=== PATIENT | male | born 1970 | race Caucasian/White ===

== ENCOUNTER 2017-03-11 13:21 | Emergency (ER) | payer MEDICAID ==
[~2017-03-11] VITALS: Ht 170.2 cm; Wt 109.2 kg
[2017-03-11 13:29] VITALS: Ht 170.2 cm; Wt 109.2 kg
[2017-03-11] MEDS ORDERED: HYDROCODONE/APAP (5/325) TAB PO ONE (14:30)
[2017-03-11] MEDS ORDERED: CLINDAMYCIN 300 MG INJ IM ONE (14:30)
[2017-03-11] MEDS ORDERED: LIDOCAINE 1% (MDV) 20 ML INJ SC ONE (14:30)
--- NOTE | 2017-03-11 14:31 | ERD ---
ER Documentation Chief Complaint Chief Complaint right elbow abscess x 2 days HPI This 47-year-old male who presents to the emergency department today complaining of right elbow pain and redness and swelling that started yesterday. States he took Tylenol for the pain. States that he thought he had a pimple inside that he squeezed. Denies any fevers or chills. Denies any trauma. ROS All systems reviewed and are negative except as per history of present illness. Medications Home Meds Active Scripts Naproxen* (Naprosyn*) 500 Mg Tablet, 500 MG PO BID Y for PAIN AND/OR INFLAMMATION, #30 TAB Prov:TERESA HU PA-C 03/11/17 Cephalexin* (Keflex*) 500 Mg Capsule, 500 MG PO QID for 7 Days, CAP Prov:TERESA HU PA-C 03/11/17 Sulfamethoxazole/Trimethoprim* (Bactrim Ds* Tablet) 1 Each Tablet, 1 TAB PO BID for 7 Days, #14 TAB Prov:TERESA HU PA-C 03/11/17 Allergies Allergies: Coded Allergies: No Known Allergy (Unverified , 03/11/17) Physical Exam Vitals Vital Signs Date Time Temp Pulse Resp B/P Pulse Ox O2 Delivery O2 Flow Rate FiO2 03/11/17 13:29 98.5 80 18 161/95 98 Physical Exam Const: NAD Head: Atraumatic Eyes: Normal Conjunctiva ENT: Normal External Ears, Nose and Mouth. Neck: Full range of motion..~ No meningismus. Resp: Clear to auscultation bilaterally Cardio: Regular rate and rhythm, no murmurs Abd: Soft, non tender, non distended. Normal bowel sounds Skin: No petechiae or rashes MSk: Right elbow with colitis erythema and swelling. Decreased range of motion secondary to pain. Pulses 2+. Distal neurovascularly intact. Neur: Awake and alert Psych: Normal Mood and Affect Results 24 hrs Current Medications Medications (Trade) Dose Ordered Sig/Arnol Route PRN Reason Start Time Stop Time Status Last Admin Dose Admin Acetaminophen/ Hydrocodone Bitart (Lovejoy (5/325)) 1 tab ONCE ONCE PO 03/11/17 14:30 03/11/17 14:31 DC 03/11/17 14:37 Clindamycin Phosphate (Cleocin) 600 mg ONCE ONCE IM 03/11/17 14:30 03/11/17 14:31 DC Lidocaine (Xylocaine 1% (Mdv) 20 ml) 20 ml ONCE ONCE SC 03/11/17 14:30 03/11/17 14:31 DC Clindamycin Phosphate (Cleocin) 600 mg ONCE ONCE IM 03/11/17 15:00 03/11/17 15:01 Procedures/MDM This 47-year-old male presents the emergency department today complaining of right elbow pain and swelling and redness that started yesterday. Patient is afebrile and otherwise well-appearing however on physical exam he has localized swelling and erythema on his right elbow. There is evidence of a small cut that upon further questioning patient indicated that he hit it on his car approximately 1 week ago. Has a very small area of fluctuance in his elbow and he did attempt to aspirate some fluid with an 18-gauge needle and lidocaine. Area was cleaned in the usual sterile fashion. I removed approximately 1 cc of fluid. Patient tolerated procedure well there were no complications. Patient was given an Walter wrap for compression. Symptoms at this time is consistent with bursitis of the elbow and localized cellulitis vs infected bursa. low suspicion for septic joint or gout. Do not feel the patient requires imaging or laboratory workup at this time. Low suspicion for sepsis, deep space tracking infection, osteomyelitis. Patient was also given clindamycin IM here in the emergency department as well as Lovejoy. He was given a prescription for Naprosyn, Tylenol, Bactrim and Keflex for home and instructed to return in 48 hours for a wound recheck. At this time the patient is stable for discharge and outpatient management. Patient should follow up with their PCP in the next 1-2 days. They may return to the emergency department sooner for any persistent or worsening of symptoms. Patient understood and agreed with the plan. Dr. Silva has seen and evaluated the patient he is in agreement with the plan. Departure Diagnosis: Primary Impression: Bursitis of elbow Elbow bursitis location: olecranon bursitis Laterality: right Qualified Code: M70.21 - Olecranon bursitis of right elbow Additional Impression: Cellulitis Site of cellulitis: extremity Site of cellulitis of extremity: upper extremity Laterality: right Qualified Code: L03.113 - Cellulitis of right upper extremity Condition: TERESA Verma PA-C Mar 11, 2017 14:31
[2017-03-11] MEDS ORDERED: NAPR-260 PO (14:56)
[2017-03-11] MEDS ORDERED: CEPH-443 PO (14:56)
[2017-03-11] MEDS ORDERED: SULF1TAB31 PO (14:56)
[2017-03-11] MEDS ORDERED: CLINDAMYCIN 900 MG INJ IM ONE (15:00)
== END 2017-03-11 15:15 | disposition home or self-care (01) ==
LOC: FTE 13:21
DX: M70.21 Olecranon bursitis, right elbow (principal); L03.113 Cellulitis of right upper limb; Y93.9 Activity, unspecified
CPT/HCPCS: 20605; 96372; S0077; Z7502; Z7610

== ENCOUNTER 2017-03-13 16:09 | Emergency (ER) | payer MEDICAID ==
[~2017-03-13] VITALS: Ht 170.2 cm; Wt 109.0 kg
[~2017-03-13 16:09] MED LIST: CEPH-443 PO; NAPR-260 PO; SULF1TAB31 PO
[2017-03-13 16:14] VITALS: Ht 170.2 cm; Wt 109.0 kg
[2017-03-13 18:00] VITALS: BP 143/94; PULSE 70; RESP 18; TEMP 98.1
--- NOTE | 2017-03-13 18:09 | ERD ---
ER Documentation Chief Complaint Chief Complaint for recheck on rt elbow cellulitis HPI This 47-year-old male is here for recheck on right elbow olecranon bursitis and cellulitis. He is on clindamycin applying warm compresses. He denies any fevers. He says there is persistent redness but no increasing pain or swelling. ROS All systems reviewed and are negative except as per history of present illness. Medications Home Meds Active Scripts Naproxen* (Naprosyn*) 500 Mg Tablet, 500 MG PO BID Y for PAIN AND/OR INFLAMMATION, #30 TAB Prov:TERESA HU PA-C 03/11/17 Cephalexin* (Keflex*) 500 Mg Capsule, 500 MG PO QID for 7 Days, CAP Prov:TERESA HU PA-C 03/11/17 Sulfamethoxazole/Trimethoprim* (Bactrim Ds* Tablet) 1 Each Tablet, 1 TAB PO BID for 7 Days, #14 TAB Prov:TERESA HU PA-C 03/11/17 Allergies Allergies: Coded Allergies: No Known Allergy (Unverified , 03/11/17) PMhx/Soc Medical and Surgical Hx: pt denies Medical Hx, pt denies Surgical Hx Hx Alcohol Use: No Hx Substance Use: No Hx Tobacco Use: No Smoking Status: Never smoker Physical Exam Vitals Vital Signs Date Time Temp Pulse Resp B/P Pulse Ox O2 Delivery O2 Flow Rate FiO2 03/13/17 16:14 98.1 98 18 143/94 96 Physical Exam Const: [] Alert, [id number]. Head: Atraumatic Eyes: Normal Conjunctiva ENT: Normal External Ears, Nose and Mouth. Neck: Full range of motion..~ No meningismus. Resp: Clear to auscultation bilaterally Cardio: Regular rate and rhythm, no murmurs Abd: Soft, non tender, non distended. Normal bowel sounds Skin: No petechiae or rashes Back: No midline or flank tenderness Ext: No cyanosis, or edema. There is some redness of the right elbow area with some minimal swelling of the olecranon bursa. It is similar to previous visit. There is no effusion appreciated no appreciable neurologic or tendon deficits or signs of ischemia. Neur: Awake and alert Psych: Normal Mood and Affect Results 24 hrs Current Medications Medications (Trade) Dose Ordered Sig/Arnol Route PRN Reason Start Time Stop Time Status Last Admin Dose Admin Ceftriaxone Sodium (Rocephin) 1 gm ONCE ONCE IM 03/13/17 18:30 03/13/17 18:31 Lidocaine (Xylocaine 1% (Mdv) 20 ml) 20 ml ONCE ONCE SC 03/13/17 18:30 03/13/17 18:31 Procedures/MDM Patient presents for recheck on right olecranon bursitis or cellulitis. Looks more or less the same as 2 days ago. I am recommending continuation of antibiotics and warm compresses will give Rocephin 1 g as needed instructions to continue current treatment and recheck again in 2-3 days, sooner for worsening redness, fevers, new worsening symptoms. Doubt necrotizing fasciitis , septic arthritis, sepsis. Departure Diagnosis: Primary Impression: Cellulitis Site of cellulitis: extremity Site of cellulitis of extremity: upper extremity Laterality: right Qualified Code: L03.113 - Cellulitis of right upper extremity Additional Impression: Olecranon bursitis Laterality: right Qualified Code: M70.21 - Olecranon bursitis of right elbow Condition: Stable Patient Instructions: Cellulitis, Bursitis, Elbow (Olecranon) Additional Instructions: Continue current medication. Recheck in 2-3 days, sooner for worsening redness , fevers, new symptoms. LEVI OLIVA MD Mar 13, 2017 18:09
[2017-03-13] MEDS ORDERED: LIDOCAINE 1% (MDV) 20 ML INJ SC ONE (18:30)
[2017-03-13] MEDS ORDERED: CEFTRIAXONE 1 GM INJ IM ONE (18:30)
== END 2017-03-13 18:34 | disposition home or self-care (01) ==
LOC: FTE 16:09
DX: L03.113 Cellulitis of right upper limb (principal); Y93.9 Activity, unspecified
CPT/HCPCS: 96372; J0696; Z7502; Z7610

== ENCOUNTER 2017-03-16 14:57 | Emergency (ER) | payer BC, MEDICAID ==
[~2017-03-16] VITALS: Ht 177.8 cm; Wt 109.6 kg
[2017-03-16 15:39] VITALS: Ht 177.8 cm; Wt 109.6 kg
--- NOTE | 2017-03-16 17:22 | ERD ---
ER Documentation Chief Complaint Chief Complaint Told to return for recheck HPI This 47-year-old male presents for recheck on right olecranon bursitis. He is taking clindamycin. Denies any fevers, worsening redness. Is requesting a tetanus shot as well. ROS All systems reviewed and are negative except as per history of present illness. PMhx/Soc Medical and Surgical Hx: pt denies Medical Hx History of Surgery: No Anesthesia Reaction: No Hx Neurological Disorder: No Hx Respiratory Disorders: No Hx Cardiac Disorders: No Hx Psychiatric Problems: No Hx Miscellaneous Medical Probl: No Hx Alcohol Use: No Hx Substance Use: No Hx Tobacco Use: No Smoking Status: Never smoker Physical Exam Vitals Vital Signs Date Time Temp Pulse Resp B/P Pulse Ox O2 Delivery O2 Flow Rate FiO2 03/16/17 15:39 98.5 102 20 175/83 99 Physical Exam Const: [] Head: Atraumatic Eyes: Normal Conjunctiva ENT: Normal External Ears, Nose and Mouth. Neck: Full range of motion..~ No meningismus. Resp: Clear to auscultation bilaterally Cardio: Regular rate and rhythm, no murmurs Abd: Soft, non tender, non distended. Normal bowel sounds Skin: No petechiae or rashes. There is some warmth and redness around the right olecranon associated with mild swelling without appreciable fluctuance. Erythema significantly improved since last visit seen by me. Is no effusion, restricted range of motion weakness. Back: No midline or flank tenderness Ext: No cyanosis, or edema Neur: Awake and alert Psych: Normal Mood and Affect Results 24 hrs Current Medications Medications (Trade) Dose Ordered Sig/Arnol Route PRN Reason Start Time Stop Time Status Last Admin Dose Admin Ceftriaxone Sodium (Rocephin) 1 gm ONCE ONCE IM 03/16/17 17:30 03/16/17 17:31 Lidocaine (Xylocaine 1% (Mdv) 20 ml) 20 ml ONCE ONCE SC 03/16/17 17:30 03/16/17 17:31 Diphtheria/ Tetanus/Acell Pertussis (Adacel) 0.5 ml ONCE ONCE IM* 03/16/17 17:30 12 17:31 Procedures/MDM Patient presents for recheck on right olecranon bursitis which is improving but not completely resolved. Patient will be given additional Rocephin 1 g IM, instructions continue clindamycin warm compresses and rechecking for worsening redness, fevers, new worsening symptoms. Patient was given a tetanus booster as well. Current signs or symptoms do not suggest osteo-myelitis, septic arthritis, ischemia, deficits. Departure Diagnosis: Primary Impression: Olecranon bursitis of right elbow Condition: Stable Patient Instructions: Bursitis, Elbow (Olecranon) Additional Instructions: Continue antibiotics and warm compresses. Recheck for worsening redness, fevers , new or worsening symptoms. LEVI OLIVA MD Mar 16, 2017 17:22
[2017-03-16] MEDS ORDERED: DIPHTH/TET/ACEL PERTUSS (ADULT) 0.5 ML VIAL IM* ONE (17:30)
[2017-03-16] MEDS ORDERED: CEFTRIAXONE 1 GM INJ IM ONE (17:30)
[2017-03-16] MEDS ORDERED: LIDOCAINE 1% (MDV) 20 ML INJ SC ONE (17:30)
== END 2017-03-16 17:54 | disposition home or self-care (01) ==
LOC: FTE 14:57 → MERGE 14:57 → FTE 17:54
DX: M70.21 Olecranon bursitis, right elbow (principal); Y93.9 Activity, unspecified; Z23 Encounter for immunization
CPT/HCPCS: 90471; 90715; 96372; J0696; Z7502; Z7610

== ENCOUNTER 2017-04-13 15:10 | Emergency (ER) | END 2017-04-13 21:14 | disposition home or self-care (01) ==

== ENCOUNTER 2018-01-17 11:17 | Emergency (ER) | END 2018-01-17 14:24 | disposition home or self-care (01) ==

== ENCOUNTER 2018-08-18 14:37 | Emergency (ER) | payer MEDICAID ==
[~2018-08-18] VITALS: Ht 177.8 cm; Wt 95.0 kg
[~2018-08-18 14:37] MED LIST changes: +HC30CR25 TOP; +HYDR-4011 PO; +MINE3.5O30 LEFT EYE; -NAPR-260 PO; +NAPR-985 PO
[2018-08-18 14:41] VITALS: PULSE 99; Ht 177.8 cm; Wt 95.0 kg
[2018-08-18] MEDS ORDERED: LOSA1TAB9 PO (15:21)
--- NOTE | 2018-08-18 15:28 | ERD ---
ER Documentation Chief Complaint Chief Complaint PT CAME FOR REFILL HTN MEDICATION; HX OF HTN, NO MORE MEDS HPI Patient is a 48-year-old male with past medical history ER for concerns of a refill for his high blood pressure medication. Patient states he is not taking his high blood pressure medication for 2 months. Patient states he takes Hyzaar 100 mg. Patient denies any chest pain, shortness breath, headache, nausea, vomiting, blurry vision or LOC. Patient states he is only here for medication refill. ROS All systems reviewed and are negative except as per history of present illness. Medications Home Meds Active Scripts Losartan/Hydrochlorothiazide (Hyzaar 100-12.5 Tablet) 1 Each Tablet, 1 EACH PO DAILY, #30 TAB Prov:JUANCHO GRESHAM PA-C 08/18/18 Hydrocortisone* Topical (Hydrocortisone* Topical) 2.5%-28.3 Gm Cream..g., 1 APPLIC TOP BID for 5 Days, #1 TUB Prov:JOESPH GROSS MD 01/17/18 Hydrocodone/Acetaminophen ([place] 5-325 Tablet) 1 Each Tablet, 1 TAB PO Q8 PRN for PAIN, #10 TAB Prov:JOESPH GROSS MD 01/17/18 Mineral Oil/Petrolatum,White (ARTIFICIAL TEARS EYE OINT) 3.5 Gm Oint...g., 1 APPLIC LEFT EYE NEEDED PRN for DRY EYES, #1 EA Prov:FERN HONG PA-C 04/13/17 Naproxen* (Naprosyn*) 500 Mg Tablet, 500 MG PO BID PRN for PAIN AND/OR INFLAMMATION, #30 TAB Prov:TERESA HU PA-C 03/11/17 Cephalexin* (Keflex*) 500 Mg Capsule, 500 MG PO QID for 7 Days, CAP Prov:TERESA HU PA-C 03/11/17 Sulfamethoxazole/Trimethoprim* (Bactrim Ds* Tablet) 1 Each Tablet, 1 TAB PO BID for 7 Days, #14 TAB Prov:TERESA HU PA-C 03/11/17 Allergies Allergies: Coded Allergies: No Known Allergy (Unverified , 03/11/17) PMhx/Soc History of Surgery: Yes (Ankle) Anesthesia Reaction: No Hx Neurological Disorder: No Hx Respiratory Disorders: No Hx Cardiac Disorders: Yes (HTN, High Cholesterol) Hx Psychiatric Problems: No Hx Miscellaneous Medical Probl: No Hx Alcohol Use: No Hx Substance Use: No Hx Tobacco Use: No FmHx Family History: No diabetes Physical Exam Vitals Vital Signs Date Temp Pulse Resp B/P (MAP) Pulse Ox O2 O2 Flow FiO2 Time Delivery Rate 08/18/18 97.9 99 18 170/104 95 14:41 (126) Physical Exam GENERAL: Well-developed, well-nourished male. Appears in no acute distress. Speaking in full sentences. HEAD: Normocephalic, atraumatic. EYES: Pupils are equally reactive bilaterally. EOMs grossly intact. No conjunctival erythema. ENT: Moist mucous membranes. No uvula deviation. No kissing tonsils. NECK: Supple. No meningismus. Normal range of motion of the neck. LUNG: Clear to auscultation bilaterally. No rhonchi, wheezing, rales or coarse breath sounds. HEART: Regular rate and rhythm. No murmurs, rubs or gallops. Equal pulses in bilateral upper extremities. EXTREMITIES: Equal pulses bilaterally. No peripheral clubbing, cyanosis or edema. No unilateral leg swelling. NEUROLOGIC: Alert and oriented. Moving all four extremities without any difficulty. Normal speech. Steady gait. SKIN: Normal color. Warm and dry. No rashes or lesions. Procedures/MDM MEDICAL DECISION MAKING: Patient is a 48-year-old male presents ER for concerns of needing a refill of his high blood pressure medications. Patient denies any associated chest pain, shortness of breath, headache, blurry vision, nausea, vomiting or LOC. Vital signs were reviewed. Patient is afebrile. Patient was not hypoxic. Patient was hemodynamically stable. Refill of the patient's Hyzaar was provided. Patient advised to follow-up with a primary care physician for further management of his elevated blood pressures. Low suspicion for hypertensive emergency or hypertensive urgency at this time. DISCHARGE: At this time, patient is stable for discharge and outpatient management. I have instructed the patient to follow-up with his/her primary care physician in 1-2 days. I have discussed with the patient the possibility of needing to see a specialist for further workup and imaging studies if symptoms persist. I have instructed the patient to promptly return to the ER for any new or worsening symptoms including increased pain, fever, nausea, vomiting, weakness or LOC. The patient and/or family expressed understanding of and agreement with this plan. All questions were answered. Home care instructions were provided. Patients blood pressure was elevated (>120/80) but appears stable without evidence of hypertensive emergency, hypertensive urgency or end-organ failure. I had discussion with the patient about the risks of hypertension. I have advised the patient to follow up with his/her primary care physician for outpatient monitoring and treatment for hypertension in 2-3 days. I have instructed the patient to return to the ER for any new or worsening symptoms including chest pain, shortness of breath, headache, blurred vision, confusion, nausea, vomiting or LOC. Disclaimer: Inadvertent spelling and grammatical errors are likely due to EHR/dictation software use and do not reflect on the overall quality of patient care. Also, please note that the electronic time recorded on this note does not necessarily reflect the actual time of the patient encounter. Departure Diagnosis: Primary Impression: Medication refill Additional Impression: Hypertension Hypertension type: unspecified Qualified Codes: I10 - Essential (primary) hypertension Patient Instructions: Hypertension, Established, Out Of Control Referrals: [facility] YOU HAVE RECEIVED A MEDICAL SCREENING EXAM AND THE RESULTS INDICATE THAT YOU DO NOT HAVE A CONDITION THAT REQUIRES URGENT TREATMENT IN THE EMERGENCY DEPARTMENT. FURTHER EVALUATION AND TREATMENT OF YOUR CONDITION CAN WAIT UNTIL YOU ARE SEEN IN YOUR DOCTORS OFFICE WITHIN THE NEXT 1-2 DAYS. IT IS YOUR RESPONSIBILITY TO MAKE AN APPOINTMENT FOR FOLOW-UP CARE. IF YOU HAVE A PRIMARY DOCTOR --you should call your primary doctor and schedule an appointment IF YOU DO NOT HAVE A PRIMARY DOCTOR YOU CAN CALL OUR PHYSICIAN REFERRAL HOTLINE AT IF YOU CAN NOT AFFORD TO SEE A PHYSICIAN YOU CAN CHOSE FROM THE FOLLOWING [facility] [address] [facility] [address] [facility] [facility] [address] [facility] [facility] [address] [facility] [address] [facility] [facility] [address] [facility]. [facility] YOU HAVE RECEIVED A MEDICAL SCREENING EXAM AND THE RESULTS INDICATE THAT YOU DO NOT HAVE A CONDITION THAT REQUIRES URGENT TREATMENT IN THE EMERGENCY DEPARTMENT. FURTHER EVALUATION AND TREATMENT OF YOUR CONDITION CAN WAIT UNTIL YOU ARE SEEN IN YOUR DOCTORS OFFICE WITHIN THE NEXT 1-2 DAYS. IT IS YOUR RESPONSIBILITY TO MAKE AN APPOINTMENT FOR FOLOW-UP CARE. IF YOU HAVE A PRIMARY DOCTOR --you should call your primary doctor and schedule and appointment IF YOU DO NOT HAVE A PRIMARY DOCTOR YOU CAN CALL OUR PHYSICIAN REFERRAL HOTLINE AT . IF YOU CAN NOT AFFORD TO SEE A PHYSICIAN YOU CAN CHOSE FROM THE FOLLOWING [facility] INSTITUTIONS: [facility] [address] [place] [address] [facility] [address] [place] [address] [facility] [address] [place] [address] Additional Instructions: Keep a log of your blood pressures. Follow-up with your primary care physician for further management of her ongoing blood pressures. Call your primary care doctor TOMORROW for an appointment during the next 1-2 days.See the doctor sooner or return here if your condition worsens before your appointment time. JUANCHO GRESHAM PA-C August 18, 2018 15:28
[2018-08-18 16:03] VITALS: BP 137/90; RESP 18
== END 2018-08-18 16:04 | disposition home or self-care (01) ==
LOC: FTE 14:37
DX: Z76.0 Encounter for issue of repeat prescription (principal); I10 Essential (primary) hypertension
CPT/HCPCS: 99281